=== PATIENT | female | born 1960 | race Caucasian/White ===

== ENCOUNTER 2017-11-10 13:35 | Day surgery (SDC) | payer OTHER ==
[~2017-11-10] VITALS: Ht 170.2 cm; Wt 90.3 kg
[~2017-11-10 13:35] MED LIST: DICL75ER PO; Norco 5-325 Ta1 EACH PO; TRAM50 PO; ZOLP10 PO
[2017-11-10] MEDS ORDERED: ESOM20 PO (13:58)
== END 2017-11-10 16:28 | disposition home or self-care (01) ==
LOC: ORSCSDS 13:35
PROVIDERS: Orthopaedic Surgery
PROC: 0RQT0ZZ Repair Left Carpometacarpal Joint, Open Approach (ICD-10-PCS; principal; 2017-11-10 14:45)
DX: M19.042 Primary osteoarthritis, left hand (principal); K21.9 Gastro-esophageal reflux disease without esophagitis; E66.9 Obesity, unspecified; Z68.31 Body mass index [BMI] 31.0-31.9, adult
CPT/HCPCS: C1713; J0690; J1100; J1170; J1885; J2250; J2405; J3010; J7120